=== PATIENT | male | born 1995 | race Asian ===

== ENCOUNTER 2018-06-05 23:43 | Emergency (ER) | payer BC ==
[~2018-06-05] VITALS: Ht 177.8 cm; Wt 65.8 kg
--- NOTE | 2018-06-05 23:57 | NUR ---
BIB SELF C/C OF BODY RASH. AA/OX4. NO S/S OF SOB. LUNGS CLEAR IN ALL FEILDS. NO SWELLING IN MOUTH. NAD. VSS. AWAITING MD ORDERS. WILL CONTINUE TO MONITOR
[2018-06-06] MEDS ORDERED: EPINEPHRINE (1:1000) MDV 30 MG/30ML VIAL SUBCUT ONE
[2018-06-06] MEDS ORDERED: diphenhydrAMINE HCL 50 MG CAPSULE PO ONE
[2018-06-06] MEDS ORDERED: predniSONE 10 MG TABLET PO ONE
[2018-06-06] MEDS ORDERED: FAMOTIDINE (20 MG) 20 MG TABLET PO ONE
[2018-06-06] MEDS ORDERED: EPINEPHRINE (1:1000) MDV 30 MG/30ML VIAL ONE (00:08)
[2018-06-06] MEDS ORDERED: diphenhydrAMINE HCL 50 MG CAPSULE ONE (00:08)
[2018-06-06] MEDS ORDERED: FAMOTIDINE (20 MG) 20 MG TABLET ONE (00:08)
[2018-06-06] MEDS ORDERED: predniSONE 20 MG TABLET ONE (00:09)
[2018-06-06 00:24] VITALS: BP 112/67
== END 2018-06-06 01:54 | disposition home or self-care (01) ==
LOC: ER 23:46
DX: L50.9 Urticaria, unspecified (principal)
CPT/HCPCS: 96372; 99284; A4606; J0171; J7512; Q0163; Z7610